=== PATIENT | female | born 1945 | race Caucasian/White ===

== ENCOUNTER → 2018-08-02 | Outpatient (CLI) | payer MEDICARE ==
[~2018-08-02] MED LIST: AMIT10TA PO; AMLO5TAB4 PO; ASPI-496 PO; BENA40TA55 PO; CHOL100014 PO; CYAN10005 PO; ERGO500017 PO; ESCI5TAB7 PO; FOLI-17 PO; HYDR25TA6 PO; LEVO88TA2 PO; METO25TA2 PO; METO50TA82 PO; OMNIPAQUE 350 MG/ML, 150 ML BOTTLE ONE; POTA20TA89 PO
== END | disposition home or self-care (01) ==
LOC: CFH 14:02
PROVIDERS: ATTEND Family Medicine
DX: I65.23 Occlusion and stenosis of bilateral carotid arteries (principal); E04.1 Nontoxic single thyroid nodule; M47.812 Spondylosis without myelopathy or radiculopathy, cervical region
CPT/HCPCS: 70491; 71260; Q9967

== ENCOUNTER 2019-02-20 15:48 | Emergency (ER) | payer MEDICARE ==
[~2019-02-20] VITALS: Ht 167.6 cm; Wt 79.3 kg
[~2019-02-20 15:48] MED LIST changes: +CYAN-27 PO; -CYAN10005 PO; -OMNIPAQUE 350 MG/ML, 150 ML BOTTLE ONE
--- NOTE | 2019-02-20 16:18 | NUR ---
PT AMBULATORY TO ROOM FROM LOBBY
[2019-02-20 16:30] LABS: BASOPHILS # (AUTO) 0.04 x10^3/uL (0-0.1); BASOPHILS % (AUTO) 0 % (0-1); EOSINOPHILS # (AUTO) 0.13 x10^3/uL (0-0.4); EOSINOPHILS % (AUTO) 1 % (1-7); LYMPHOCYTES # (AUTO) 1.73 x10^3/uL (1-3.4); LYMPHOCYTES % (AUTO) 18 % (22-44); MD NO; MEAN CORPUSCULAR HEMOGLOBIN 35.5 pg (27.0-34.8); MEAN CORPUSCULAR HGB CONC 34.3 g/dL (32.4-35.8); MEAN CORPUSCULAR VOLUME 103.6 fL (80-100); MEAN PLATELET VOLUME 8.2 fL (7.4-10.4); MONOCYTES # (AUTO) 0.78 x10^3/uL (0.2-0.8); MONOCYTES % (AUTO) 8 % (2-9); NEUTROPHILS # (AUTO) 6.75 x10^3/uL (1.8-6.8); NEUTROPHILS % (AUTO) 72 % (42-75); PLATELET COUNT 241 x10^3/uL (130-400); RED BLOOD COUNT 4.97 x10^6/uL (3.82-5.3); RED CELL DISTRIBUTION WIDTH 16.5 % (9.6-15.2)
[2019-02-20] MEDS ORDERED: SODIUM CHLORIDE FLUSH 10ML SYR IVF ONE (16:30)
--- NOTE | 2019-02-20 16:30 | NUR ---
PT PROVIDED WITH URINE CUP AND INSTRUCTIONS. PT STATES SHE CANNOT URINATE YET BUT WILL LET ME KNOW WHEN SHE CAN. VSS. NAD.
--- NOTE | 2019-02-20 16:31 | NUR ---
FIRST CONTACT WITH PT. PT REPORTS LUQ ABD PAIN FOR 3+ DAYS. SHE HAS HAD N/V/D FOR 3+ DAYS. PT RATES PAIN AT A 7/10. PT ON SERIAL VS AND CONT. PULSE OX. VSS.
[2019-02-20 16:41] LABS: ALANINE AMINOTRANSFERASE 25 U/L (12-78); ALBUMIN 3.6 g/dL (3.4-5.0); ANION GAP 11 mmol/L (5-15); CALCIUM 9.3 mg/dL (8.5-10.1); CHLORIDE 102 mmol/L (98-107); CREATININE 1.08 mg/dL (0.55-1.02)
[2019-02-20 16:44] LABS: ALKALINE PHOSPHATASE 85 U/L (45-117); BILIRUBIN,TOTAL 0.8 mg/dL (0.2-1.0); TOTAL PROTEIN 7.8 g/dL (6.4-8.2)
[2019-02-20] MEDS ORDERED: MORPHINE SULFATE 4 MG/ML, 1ML IVPush ONE (17:30)
[2019-02-20] MEDS ORDERED: ONDANSETRON 2MG/ML, 2ML IVPush ONE (17:30)
[2019-02-20] MEDS ORDERED: ONDANSETRON 2MG/ML, 2ML ONE (18:06)
[2019-02-20] MEDS ORDERED: MORPHINE SULFATE 4 MG/ML, 1ML ONE (18:07)
[2019-02-20] MEDS ORDERED: OMNIPAQUE 350 MG/ML, 100ML BOTTLE ONE (18:09)
--- NOTE | 2019-02-20 18:13 | NUR ---
PT MEDICATED FOR PAIN AND NAUSEA. VSS. NAD. PT IN STABLE CONDITION AND ON SERIAL VS AND CONT. PULSE OX.
--- NOTE | 2019-02-20 19:00 | NUR ---
PT DENIES ANY NEEDS AT THIS TIME. NAD. VSS.
[2019-02-20] MEDS ORDERED: POTASSIUM CHLORIDE 20 MEQ TAB.ER.PRT PO SCH (19:30)
[2019-02-20 19:37] LABS: MICROSCOPIC NOT IND
[2019-02-20 19:49] LABS: CULTURE INDICATED? NO
[2019-02-20] MEDS ORDERED: POTASSIUM CHLORIDE 20 MEQ TAB.ER.PRT ONE (20:10)
--- NOTE | 2019-02-20 20:23 | NUR ---
PT STATES THE PAIN MEDS WORKED WELL AND HER CURRENT PAIN IS A 2/10. PT WAS GIVEN CRACKERS AND POTASSIUM PILLS - DENIES NAUSEA AND IS TOLERATING MEDICATION. VSS. NAD.
[2019-02-20 20:24] VITALS: BP 123/55
--- NOTE | 2019-02-20 20:28 | NUR ---
PROVIDER AT BEDSIDE, EXPLAINING RESULTS TO PT AND DISCUSSING POC. PT VERBALIZED UNDERSTANDING OF INSTRUCTIONS/DISCUSSION. PT HAS BEEN INSTRUCTED TO DOUBLE HER DOSE OF K, BECAUSE HER K IS LOW. VSS.
--- NOTE | 2019-02-20 20:36 | NUR ---
Patient/Caregiver given discharge instructions and they have confirmed that they understand the instructions. Patient ambulatory with steady gait.
== END 2019-02-20 20:37 | disposition home or self-care (01) ==
LOC: ED 18:40
DX: R10.32 Left lower quadrant pain (principal); R19.7 Diarrhea, unspecified; R11.2 Nausea with vomiting, unspecified; I10 Essential (primary) hypertension; E03.9 Hypothyroidism, unspecified; F41.9 Anxiety disorder, unspecified; Z72.9 Problem related to lifestyle, unspecified; Z90.49 Acquired absence of other specified parts of digestive tract; Z86.73 Personal history of transient ischemic attack (TIA), and cerebral infarction without residual deficits
CPT/HCPCS: 36415; 74177; 80053; 81003; 83690; 85025; 96374; 96375; 99284; J2270; J2405; Q9967

== ENCOUNTER → 2020-03-05 | Outpatient (CLI) | payer MEDICARE | END | disposition home or self-care (01) | LOC: CFH 08:48 | PROVIDERS: ATTEND Internal Medicine Cardiovascular Disease | DX: Z01.810 Encounter for preprocedural cardiovascular examination (principal); I25.9 Chronic ischemic heart disease, unspecified | CPT/HCPCS: 78452; 93017; A9502 ==

== ENCOUNTER 2020-03-18 15:38 | Outpatient (CLI) | payer MEDICARE | END 2020-03-18 23:59 | disposition home or self-care (01) | LOC: CVU 15:38 | PROVIDERS: ATTEND Internal Medicine Cardiovascular Disease | DX: I35.8 Other nonrheumatic aortic valve disorders (principal); Z01.818 Encounter for other preprocedural examination; I10 Essential (primary) hypertension | CPT/HCPCS: 93306 ==

== ENCOUNTER 2020-09-16 13:44 | Inpatient (IN) | payer MEDICARE ==
[~2020-09-16] VITALS: Ht 167.6 cm; Wt 76.9 kg
[~2020-09-16 13:44] MED LIST changes: -FOLI-17 PO; +FOLI1TAB32 PO
[2020-09-16] MEDS ORDERED: MECLIZINE CHEWABLE 25 MG TAB ONE (14:46)
[2020-09-16] MEDS ORDERED: MECLIZINE CHEWABLE 25 MG TAB PO ONE (15:00)
[2020-09-16 15:40] LABS: BASOPHILS % (AUTO) 1 % (0-1); EOSINOPHILS % (AUTO) 1 % (1-7); LYMPHOCYTES % (AUTO) 22 % (22-44); MEAN CORPUSCULAR HEMOGLOBIN 33.7 pg (27.0-34.8); MEAN CORPUSCULAR HGB CONC 34.5 g/dL (32.4-35.8); MEAN PLATELET VOLUME 9.5 fL (7.4-10.4); MONOCYTES % (AUTO) 12 % (2-9); NEUTROPHILS % (AUTO) 65 % (42-75); PLATELET COUNT 318 x10^3/uL (130-400); RED BLOOD COUNT 5.03 x10^6/uL (3.82-5.3); RED CELL DISTRIBUTION WIDTH 14.4 % (9.6-15.2)
[2020-09-16 15:41] LABS: MD NO
[2020-09-16 15:53] LABS: ALANINE AMINOTRANSFERASE 36 U/L (12-78); ALBUMIN 4.1 g/dL (3.4-5.0); ANION GAP 10 mmol/L (5-15); CALCIUM 10.3 mg/dL (8.5-10.1); CHLORIDE 110 mmol/L (98-107); CREATININE 0.96 mg/dL (0.55-1.02)
[2020-09-16 16:03] LABS: ALKALINE PHOSPHATASE 101 U/L (45-117); BILIRUBIN,TOTAL 0.6 mg/dL (0.2-1.0); TOTAL PROTEIN 7.9 g/dL (6.4-8.2)
[2020-09-16 16:05] LABS: MICROSCOPIC INDICATED
[2020-09-16 17:55] LABS: MICROSCOPIC NOT IND
--- NOTE | 2020-09-16 18:56 | NUR ---
This pt is coming from home where she lives alone and ambulates with a walker. Pt has L leg longer at baseline after hip replacement. Pt is awaiting R hip replacement. Pt has a hx of vertigo. She states she's been dizzy for 3 days, with Antivert offering slight relief. Pt states she's had increase thirst and increase in urinary frequency, denies all other UTI s/sx. Pt has remained connected to all monitors, NADN, call light in reach, all needs met. Bedside report to ELSA Henriquez. Law back at bedside to update pt on POC including plan for admit.
[2020-09-16] MEDS ORDERED: AMOXICILLIN/CLAV 875-125MG TABLET PO ONE (19:00)
[2020-09-16] MEDS ORDERED: ASPIRIN 325 MG TABLET ONE (19:29)
[2020-09-16] MEDS ORDERED: AMOXICILLIN/CLAV 875-125MG TABLET ONE (19:29)
[2020-09-16] MEDS ORDERED: ASPIRIN 325 MG TABLET PO ONE (19:30)
[2020-09-16] MEDS ORDERED: HYDROcodone/APAP 5/325 TABLET PO PRN (20:30)
[2020-09-16] MEDS ORDERED: ONDANSETRON 2MG/ML, 2ML IVPush PRN (20:30)
[2020-09-16] MEDS ORDERED: LABETALOL 5MG/ML, 20ML IVPush PRN ×2 (20:30→21:30)
[2020-09-16] MEDS ORDERED: morphine SULFATE 10 MG/ML, 1ML IVPush PRN (20:30)
[2020-09-16] MEDS ORDERED: ATORVASTATIN 40 MG TABLET PO SCH (21:00)
[2020-09-16] MEDS ORDERED: METOPROLOL SUCCINATE 25 MG TAB.ER.24H PO SCH (21:00)
[2020-09-16 21:27] VITALS: BP 133/64
[2020-09-16] MEDS: FAMOTIDINE 20 MG TABLET PO SCH (21:29)
[2020-09-16 21:49] VITALS: BP 133/65
[2020-09-16] MEDS: ACETAMINOPHEN 325 MG TABLET PO PRN (22:10)
[2020-09-17 01:35] VITALS: BP 148/78
[2020-09-17] MEDS ORDERED: LEVOTHYROXINE 88 MCG TABLET PO SCH (06:00)
[2020-09-17] MEDS ORDERED: ASPIRIN 81 MG TABLET EC PO SCH (06:00)
[2020-09-17 06:08] LABS: BASOPHILS % (AUTO) 0 % (0-1); EOSINOPHILS % (AUTO) 2 % (1-7); LYMPHOCYTES % (AUTO) 30 % (22-44); MEAN CORPUSCULAR HEMOGLOBIN 33.9 pg (27.0-34.8); MEAN CORPUSCULAR HGB CONC 34.8 g/dL (32.4-35.8); MEAN PLATELET VOLUME 9.4 fL (7.4-10.4); MONOCYTES % (AUTO) 15 % (2-9); NEUTROPHILS % (AUTO) 54 % (42-75); PLATELET COUNT 256 x10^3/uL (130-400); RED BLOOD COUNT 4.58 x10^6/uL (3.82-5.3); RED CELL DISTRIBUTION WIDTH 14.5 % (9.6-15.2)
[2020-09-17 06:11] LABS: MD NO
[2020-09-17 06:15] LABS: CHLORIDE 112 mmol/L (98-107)
[2020-09-17 06:20] LABS: ALANINE AMINOTRANSFERASE 27 U/L (12-78); ALBUMIN 3.4 g/dL (3.4-5.0); ALKALINE PHOSPHATASE 82 U/L (45-117); ANION GAP 7 mmol/L (5-15); BILIRUBIN,TOTAL 0.7 mg/dL (0.2-1.0); CALCIUM 9.8 mg/dL (8.5-10.1); CHOL/HDL RATIO 3.4; CHOLESTEROL, TOTAL 189 mg/dL (140-239); CREATININE 0.84 mg/dL (0.55-1.02); HDL CHOL % 29 % (28-40); HDL CHOLESTEROL (DIRECT) 55 mg/dL (40-60); LDL CHOLESTEROL,CALCULATED 107 mg/dL (54-169); LDL/HDL RATIO 1.9 (0.5-3.0); TOTAL PROTEIN 6.9 g/dL (6.4-8.2); TRIGLYCERIDES 135 mg/dL (50-200); VLDL CHOLESTEROL 27 mg/dL (0-25)
[2020-09-17 06:38] VITALS: BP 149/69
[2020-09-17] MEDS: ACETAMINOPHEN 325 MG TABLET PO PRN (08:57)
[2020-09-17] MEDS: FAMOTIDINE 20 MG TABLET PO SCH (08:57)
[2020-09-17] MEDS ORDERED: AMOXICILLIN/CLAV 875-125MG TABLET PO SCH (09:00)
[2020-09-17] MEDS ORDERED: LEXAPRO PO SCH (09:00)
[2020-09-17] MEDS ORDERED: AMLODIPINE 5 MG TABLET PO SCH (09:00)
[2020-09-17] MEDS ORDERED: AMOX1TAB12 PO (10:09)
[2020-09-17] MEDS ORDERED: MECL-101 PO (10:12)
[2020-09-17] MEDS ORDERED: FLUC200T PO (10:17)
[2020-09-17] MEDS ORDERED: PRAV10TA2 PO (10:44)
== END 2020-09-17 11:00 | disposition home or self-care (01) | DRG 153 ==
LOC: ED 17:49 → SUATTDRO 19:07 → EDIP 19:24 → 4EST 20:12 → DCLOUNGE 09-17 10:58
PROVIDERS: ADMIT Internal Medicine; ATTEND Internal Medicine
PROC: 0T9B70Z Drainage of Bladder with Drainage Device, Via Natural or Artificial Opening (ICD-10-PCS; principal; 2020-09-16)
DX: H70.91 Unspecified mastoiditis, right ear (principal); G61.0 Guillain-Barre syndrome; E06.3 Autoimmune thyroiditis; G43.909 Migraine, unspecified, not intractable, without status migrainosus; I10 Essential (primary) hypertension; Z86.73 Personal history of transient ischemic attack (TIA), and cerebral infarction without residual deficits; Z66 Do not resuscitate; Z96.642 Presence of left artificial hip joint; Z90.49 Acquired absence of other specified parts of digestive tract; F41.9 Anxiety disorder, unspecified; Z88.8 Allergy status to other drugs, medicaments and biological substances; Z87.891 Personal history of nicotine dependence; Z82.49 Family history of ischemic heart disease and other diseases of the circulatory system; Z82.5 Family history of asthma and other chronic lower respiratory diseases
CPT/HCPCS: 36415; 70450; 70551; 71045; 80053; 80061; 81001; 81003; 83036; 83735; 84100; 84439; 84443; 84481; 85025; 87086; 93005; 99285; G0378; 92523-GN

== ENCOUNTER 2020-12-23 08:58 | Day surgery (SDC) | payer MEDICARE ==
[~2020-12-23] VITALS: Ht 168.9 cm; Wt 75.6 kg
[~2020-12-23 08:58] MED LIST changes: +AMOX1TAB12 PO; +FLUC200T PO; +MECL-101 PO; +PRAV10TA2 PO
[2020-12-23] MEDS ORDERED: SODIUM CHLORIDE 0.9% 1,000 ML IV SCH (09:30)
[2020-12-23] MEDS ORDERED: ASPI81TA45 PO (09:42)
[2020-12-23] MEDS ORDERED: VITA1TAB67 PO (09:42)
[2020-12-23] MEDS ORDERED: CHOL100011 PO (09:42)
[2020-12-23] MEDS ORDERED: NAPR220C2 PO (09:42)
[2020-12-23 09:47] VITALS: BP 176/70
[2020-12-23 10:03] LABS: BASOPHILS % (AUTO) 1 % (0-1); EOSINOPHILS % (AUTO) 1 % (1-7); LYMPHOCYTES % (AUTO) 18 % (22-44); MEAN CORPUSCULAR HEMOGLOBIN 30.1 pg (27.0-34.8); MEAN CORPUSCULAR HGB CONC 34.3 g/dL (32.4-35.8); MEAN PLATELET VOLUME 9.2 fL (7.4-10.4); MONOCYTES % (AUTO) 10 % (2-9); NEUTROPHILS % (AUTO) 70 % (42-75); PLATELET COUNT 272 x10^3/uL (130-400); RED BLOOD COUNT 5.31 x10^6/uL (3.82-5.3); RED CELL DISTRIBUTION WIDTH 14.6 % (9.6-15.2)
[2020-12-23 10:12] LABS: ANION GAP 10 mmol/L (5-15); CALCIUM 10.5 mg/dL (8.5-10.1); CHLORIDE 109 mmol/L (98-107); CREATININE 0.98 mg/dL (0.55-1.02); INTERNATIONAL NORMALIZED RATIO 1.01 (0.93-1.1); PROTHROMBIN TIME 10.8 Seconds (9.6-11.5)
[2020-12-23] MEDS ORDERED: MIDAZOLAM 1 MG/ML, 2ML ONE (11:01)
[2020-12-23] MEDS ORDERED: LIDOCAINE 1%, 20ML ONE (11:01)
[2020-12-23] MEDS ORDERED: FENTANYL PF 100 MCG/2ML ONE (11:01)
== END 2020-12-23 15:21 | disposition home or self-care (01) ==
LOC: CACL 08:58
PROVIDERS: ATTEND Internal Medicine Cardiovascular Disease
DX: R94.39 Abnormal result of other cardiovascular function study (principal); I34.0 Nonrheumatic mitral (valve) insufficiency; I10 Essential (primary) hypertension; E78.5 Hyperlipidemia, unspecified; E03.9 Hypothyroidism, unspecified; G61.0 Guillain-Barre syndrome; I73.00 Raynaud's syndrome without gangrene; F41.9 Anxiety disorder, unspecified; Z79.01 Long term (current) use of anticoagulants; Z79.82 Long term (current) use of aspirin; Z79.890 Hormone replacement therapy; Z79.899 Other long term (current) drug therapy; Z87.891 Personal history of nicotine dependence; Z88.5 Allergy status to narcotic agent; Z88.8 Allergy status to other drugs, medicaments and biological substances; Z96.642 Presence of left artificial hip joint; Z98.890 Other specified postprocedural states
CPT/HCPCS: 36415; 76937; 80048; 85025; 85610; 93458; 99156; 99157; C1760; C1769; C1894; J2250; J3010; Q9967

== ENCOUNTER → 2021-01-21 | Outpatient (CLI) | payer MEDICARE ==
[~2021-01-21] MED LIST changes: +ASPI81TA45 PO; +CHOL100011 PO; +NAPR220C2 PO; +VITA1TAB67 PO
[2021-01-21 15:45] LABS: ALANINE AMINOTRANSFERASE 21 U/L (12-78); ALBUMIN 3.7 g/dL (3.4-5.0); ANION GAP 6 mmol/L (5-15); CALCIUM 9.7 mg/dL (8.5-10.1); CHLORIDE 108 mmol/L (98-107); CREATININE 1.06 mg/dL (0.55-1.02)
[2021-01-21 15:46] LABS: BASOPHILS % (AUTO) 1 % (0-1); EOSINOPHILS % (AUTO) 2 % (1-7); LYMPHOCYTES % (AUTO) 23 % (22-44); MEAN CORPUSCULAR HEMOGLOBIN 29.7 pg (27.0-34.8); MEAN CORPUSCULAR HGB CONC 34.6 g/dL (32.4-35.8); MEAN PLATELET VOLUME 8.9 fL (7.4-10.4); MONOCYTES % (AUTO) 10 % (2-9); NEUTROPHILS % (AUTO) 64 % (42-75); PLATELET COUNT 287 x10^3/uL (130-400); RED BLOOD COUNT 5.62 x10^6/uL (3.82-5.3); RED CELL DISTRIBUTION WIDTH 15.1 % (9.6-15.2)
[2021-01-21 15:47] LABS: ALKALINE PHOSPHATASE 109 U/L (45-117); BILIRUBIN,TOTAL 0.6 mg/dL (0.2-1.0); TOTAL PROTEIN 7.8 g/dL (6.4-8.2)
[2021-01-21 15:56] LABS: INTERNATIONAL NORMALIZED RATIO 0.98 (0.93-1.1); PROTHROMBIN TIME 10.5 Seconds (9.6-11.5)
== END | disposition home or self-care (01) ==
LOC: STAR 14:11
PROVIDERS: ATTEND Orthopaedic Surgery
DX: Z01.812 Encounter for preprocedural laboratory examination (principal); Z20.822 Contact with and (suspected) exposure to COVID-19; R00.1 Bradycardia, unspecified; I25.2 Old myocardial infarction
CPT/HCPCS: 36415; 80053; 83036; 85025; 85610; 85730; 87081; 87806; 93005; U0003; U0005; G0475

== ENCOUNTER 2021-01-27 08:08 | Observation (INO) | payer MEDICARE ==
[~2021-01-27] VITALS: Ht 167.6 cm; Wt 83.5 kg
[~2021-01-27 08:08] MED LIST changes: +EPINEPHRINE 1 MG/ML, 1ML ONE; +KETOROLAC 60 MG/2 ML ONE; +ROPIvacaine/PF 0.2%, 20 ML ONE; +SODIUM CHLORIDE 0.9% 50 ML ONE; +TRANEXAMIC ACID 100 MG/ML, 10ML ONE
[2021-01-27 09:10] VITALS: BP 172/80
[2021-01-27] MEDS ORDERED: CHLORHEXIDINE 15 ML UDC ONE (09:28)
[2021-01-27] MEDS ORDERED: ACETAMINOPHEN 500 MG TABLET PO ONE (09:30)
[2021-01-27] MEDS ORDERED: LACTATED RINGERS 1,000 ML IV SCH (09:30)
[2021-01-27] MEDS ORDERED: GABAPENTIN 300 MG CAPSULE PO ONE (09:30)
[2021-01-27] MEDS ORDERED: FENTANYL PF 250 MCG/5ML ONE (10:12)
[2021-01-27] MEDS ORDERED: DIPHENHYDRAMINE 50 MG/ML, 1ML IVPush PRN (11:00)
[2021-01-27] MEDS ORDERED: ACETAMINOPHEN 650 MG/20.3 ML UDC PO PRN (11:00)
[2021-01-27] MEDS ORDERED: SENNA/DOCUSATE TABLET PO PRN (11:00)
[2021-01-27] MEDS ORDERED: ONDANSETRON 4 MG TABLET PO PRN (11:00)
[2021-01-27] MEDS ORDERED: DIPHENHYDRAMINE 50 MG CAPSULE PO PRN (11:00)
[2021-01-27] MEDS ORDERED: POLYETHYLENE GLYCOL 17 GM PACKET PO PRN (11:00)
[2021-01-27] MEDS ORDERED: ONDANSETRON 2MG/ML, 2ML IVPush PRN ×2 (11:00→11:30)
[2021-01-27] MEDS ORDERED: PSYLLIUM PACKET PO PRN (11:00)
[2021-01-27] MEDS ORDERED: MAGNESIUM HYDROXIDE 8%, 30ML UDC PO PRN (11:00)
[2021-01-27] MEDS ORDERED: TRANEXAMIC ACID 1,000 MG in SODIUM CHLORIDE 0.9% 100 ML IVPB ONE (11:00)
[2021-01-27] MEDS ORDERED: ALUMINUM/MAG/SIMETHICONE 30 ML UDC PO PRN (11:00)
[2021-01-27] MEDS ORDERED: HYDROmorphone 1 MG/ML, 1ML INJ IVPush PRN ×2 (11:00→11:30)
[2021-01-27] MEDS ORDERED: LABETALOL 5MG/ML, 20ML IV PRN (11:30)
[2021-01-27] MEDS ORDERED: FENTANYL PF 100 MCG/2ML IV PRN (11:30)
[2021-01-27] MEDS ORDERED: METHOCARBAMOL 1,000 MG in DEXTROSE 5% 100 ML IV PRN (11:30)
[2021-01-27] MEDS ORDERED: PROMETHAZINE 25 MG SUPP PR PRN (11:30)
[2021-01-27] MEDS ORDERED: METOPROLOL 1 MG/ML, 5ML IV PRN (11:30)
[2021-01-27] MEDS ORDERED: MEPERIDINE/PF 25MG/0.5ML IVPush PRN (11:30)
[2021-01-27] MEDS ORDERED: PROMETHAZINE 25 MG/ML, 1ML IVPush PRN (11:30)
[2021-01-27] MEDS ORDERED: LORazepam 2 MG/ML, 1ML IVPush PRN (11:30)
[2021-01-27] MEDS ORDERED: hydrALAzine 20 MG/ML, 1ML IV PRN (11:30)
[2021-01-27] MEDS ORDERED: OXYcodone 5 MG/5 ML ORAL.SOL UDC PO PRN (11:30)
[2021-01-27] MEDS ORDERED: NEOSTIGMINE 1 MG/ML, 10ML ONE (12:12)
[2021-01-27] MEDS ORDERED: ONDANSETRON 2MG/ML, 2ML ONE (12:12)
[2021-01-27] MEDS ORDERED: PROPOFOL 10 MG/ML, 20ML ONE (12:12)
[2021-01-27] MEDS ORDERED: SUCCINYLCHOLINE 20 MG/ML, 10ML ONE (12:12)
[2021-01-27] MEDS ORDERED: CEFAZOLIN 1,000 MG ONE (12:12)
[2021-01-27] MEDS ORDERED: ROCURONIUM 10MG/ML,5ML ONE (12:12)
[2021-01-27] MEDS ORDERED: GLYCOPYRROLATE 0.2MG/1ML, 5ML ONE (12:12)
[2021-01-27] MEDS ORDERED: DEXAMETHASONE 4 MG/ML, 1ML ONE (12:12)
[2021-01-27] MEDS ORDERED: FENTANYL PF 100 MCG/2ML ONE (13:20)
[2021-01-27] MEDS ORDERED: OXYcodone 5 MG/5 ML ORAL.SOL UDC ONE (13:21)
[2021-01-27] MEDS ORDERED: METOCLOPRAMIDE 5 MG/ML, 2ML IVPush PRN (13:42)
[2021-01-27] MEDS ORDERED: DIPHENHYDRAMINE 25 MG CAPSULE PO PRN (14:00)
[2021-01-27 15:00] VITALS: BP 128/61
[2021-01-27] MEDS: POTASSIUM CHLORIDE 20 MEQ in D5%-0.45% NACL 1,000 ML IV SCH ×3 (15:27→21:25)
[2021-01-27] MEDS: KETOROLAC 30 MG/1 ML IV SCH ×2 (15:27→21:26)
[2021-01-27 20:16] VITALS: BP 123/69
[2021-01-27] MEDS: CEFAZOLIN PMX 1GM/50ML 50 ML IVPB SCH (21:25)
[2021-01-27] MEDS: DOCUSATE 100 MG CAPSULE PO SCH (21:26)
[2021-01-27 22:59] VITALS: BP 129/67
[2021-01-28] MEDS: OXYcodone IR 5MG TABLET PO PRN ×2 (01:09→02:29)
[2021-01-28 03:58] VITALS: BP 128/59
[2021-01-28] MEDS: CEFAZOLIN PMX 1GM/50ML 50 ML IVPB SCH (05:35)
[2021-01-28] MEDS: KETOROLAC 30 MG/1 ML IV SCH (05:40)
[2021-01-28] MEDS ORDERED: LEVOTHYROXINE 88 MCG TABLET PO SCH (06:00)
[2021-01-28] MEDS ORDERED: DEXAMETHASONE 4 MG/ML, 1ML IVPush ONE (06:00)
[2021-01-28] MEDS ORDERED: ASPIRIN 81 MG TABLET EC PO SCH (06:00)
[2021-01-28 07:38] VITALS: BP 138/68
[2021-01-28] MEDS: DOCUSATE 100 MG CAPSULE PO SCH (07:42)
[2021-01-28] MEDS ORDERED: DOCU-131 PO (08:51)
[2021-01-28] MEDS ORDERED: MELO7.5T31 PO (08:55)
[2021-01-28] MEDS ORDERED: OXYC5CAP2 PO (08:56)
[2021-01-28] MEDS ORDERED: TAMSULOSIN 0.4 MG CAP.ER.24H PO SCH (09:00)
[2021-01-28] MEDS ORDERED: AMLODIPINE 5 MG TABLET PO SCH (09:00)
[2021-01-28] MEDS ORDERED: ESCITALOPRAM 10MG TABLET PO SCH (09:00)
[2021-01-28] MEDS ORDERED: POTASSIUM CHLORIDE 20 MEQ TAB.ER.PRT PO SCH ×2 (09:00)
[2021-01-28] MEDS ORDERED: TRAM50TA2 PO (09:27)
[2021-01-28] MEDS ORDERED: ONDA4TAB7 PO (09:29)
[2021-01-28 12:49] VITALS: BP 125/55
[2021-01-28] MEDS ORDERED: METOPROLOL TARTRATE 50 MG TAB PO SCH (21:00)
[2021-01-28] MEDS ORDERED: METOPROLOL SUCCINATE 50 MG TAB.ER.24H PO SCH (21:00)
== END 2021-01-28 13:45 | disposition home or self-care (01) ==
LOC: OUT 08:08 → ORIP 10:31 → 4NE 14:40 → DCLOUNGE 01-28 13:40
PROVIDERS: ADMIT Orthopaedic Surgery; ATTEND Orthopaedic Surgery
DX: M16.11 Unilateral primary osteoarthritis, right hip (principal); M21.70 Unequal limb length (acquired), unspecified site; I10 Essential (primary) hypertension; E03.9 Hypothyroidism, unspecified; I99.8 Other disorder of circulatory system; Z79.899 Other long term (current) drug therapy
CPT/HCPCS: 27130; 36415; 72170; 85014; 85018; 86850; 86900; 96365; 96366; 96375; 96376; 97110; 97161; 97166; C1713; C1776; G0378; J0171; J0690; J1100; J1885; J2405; J2704; J2710; J2795; J2800; J3010; J3480; J7120; J0330

== ENCOUNTER 2021-03-26 15:46 | Outpatient (CLI) | payer MEDICARE ==
[~2021-03-26 15:46] MED LIST changes: +DOCU-131 PO; -EPINEPHRINE 1 MG/ML, 1ML ONE; -KETOROLAC 60 MG/2 ML ONE; +MELO7.5T31 PO; +ONDA4TAB7 PO; +OXYC5CAP2 PO; -ROPIvacaine/PF 0.2%, 20 ML ONE; -SODIUM CHLORIDE 0.9% 50 ML ONE; +TRAM50TA2 PO; -TRANEXAMIC ACID 100 MG/ML, 10ML ONE
[2021-03-26 17:37] LABS: MEAN CORPUSCULAR HEMOGLOBIN 29.3 pg (27.0-34.8); MEAN CORPUSCULAR HGB CONC 33.9 g/dL (32.4-35.8); MEAN PLATELET VOLUME 8.5 fL (7.4-10.4); PLATELET COUNT 303 x10^3/uL (130-400); RED BLOOD COUNT 5.24 x10^6/uL (3.82-5.3); RED CELL DISTRIBUTION WIDTH 15.9 % (9.6-15.2)
[2021-03-26 18:06] LABS: <PLATELET ESTIMATE> ADEQUATE; <PLT MORPHOLOGY> NORMAL PLT MORPH; <RBC MORPHOLOGY> NORMAL; EOS#(MANUAL) 0.09 x10^3/uL (0.0-0.4); EOS% (MANUAL) 1 % (1-7); LYMPHS% (MANUAL) 28 % (22-44); MONOS#(MANUAL) 0.65 x10^3/uL (0.3-2.7); MONOS% (MANUAL) 7 % (2-9); SEG#(MANUAL) 5.95 x10^3/uL (1.8-6.8); SEGS% (MANUAL) 64 % (42-75)
== END 2021-03-26 23:59 | disposition home or self-care (01) ==
LOC: RAD 15:46
PROVIDERS: ATTEND Family Medicine
DX: R21 Rash and other nonspecific skin eruption (principal); R59.9 Enlarged lymph nodes, unspecified
CPT/HCPCS: 36415; 85025